=== PATIENT | female | born 1960 | race Caucasian/White ===

== ENCOUNTER 2025-04-10 18:37 | Emergency (ER) | payer BC ==
[2025-04-10] MEDS ORDERED: Acetaminophen 325 MG TAB ONE (19:15)
== END 2025-04-10 20:50 | disposition home or self-care (01) ==
LOC: NAV ERS 18:37
DX: S63.610A Unspecified sprain of right index finger, initial encounter (principal); S63.612A Unspecified sprain of right middle finger, initial encounter; S16.1XXA Strain of muscle, fascia and tendon at neck level, initial encounter; S80.02XA Contusion of left knee, initial encounter; S40.022A Contusion of left upper arm, initial encounter; E11.9 Type 2 diabetes mellitus without complications; I10 Essential (primary) hypertension; W20.8XXA Other cause of strike by thrown, projected or falling object, initial encounter
CPT/HCPCS: 72125